=== PATIENT | female | born 1960 | race Caucasian/White ===

== ENCOUNTER 2023-11-14 14:15 | Emergency (ER) | payer BC, SELFPAY ==
[2023-11-14] VITALS (8 sets, daily range): BP systolic 62–115; BP diastolic 46–66; BMI 28.7
[2023-11-14 14:29] LABS: % Basophils 0.8 % (0-2); % Eosinophils 1.5 % (0-6); % Immature Granulocytes 0.2 % (0-0.5); % Lymphocytes 23.6 % (20.5-51.1); % Monocytes 6.9 % (1.7-9.3); Absolute Basophils 0.1 10^3/uL (0-0.2); Absolute Eosinophils 0.1 10^3/uL (0-0.7); Absolute Monocytes 0.6 10^3/uL (0.1-0.6); Absolute Neutrophils 5.8 10^3/uL (1.4-6.5); Hematocrit 35.7 % (37.0-47.0); Hemoglobin 12.7 g/dL (12.0-16.0); Mean Corp Hgb Conc. 35.6 g/dL (33.0-37.0); Mean Corpuscular Hgb 29.5 pg (27.0-31.0); Mean Corpuscular Volume 82.8 fL (81.0-99.0); Mean Platelet Volume 9.7 fL (7.4-10.4); Nucleated Red Blood Cells % 0 %; Platelet Count 286 10^3/uL (130-400); Red Blood Cell Count 4.31 10^6/uL (4.20-5.40); Red Cell Dist. Width 12.7 % (11.5-14.5); White Blood Cell Count 8.6 10^3/uL (4.8-10.8)
[2023-11-14 14:42] LABS: ALT (SGPT) 24 U/L (0-35); AST (SGOT) 25 U/L (14-36); Albumin 4.2 g/dl (3.5-5.0); Alkaline Phosphatase 78 U/L (38-126); Blood Urea Nitrogen 12 mg/dl (7-17); Calcium 9.6 mg/dl (8.4-10.2); Carbon Dioxide 28 mmol/L (22-30); Chloride 100 mmol/L (98-107); Estimated Creatinine Clearance 95 ml/min; Glucose 180 mg/dl (70-99); Potassium 3.2 mmol/L (3.5-5.1); Sodium 135 mmol/L (135-145); Total Bilirubin 0.7 mg/dl (0.2-1.3); Total Protein 7.1 g/dl (6.3-8.2); eGFR > 60.00
[2023-11-14 14:53] LABS: Troponin I < 0.012 ng/ml
--- NOTE | 2023-11-14 15:25 | ED.GENMED ---
History of Present Illness
General
Chief Complaint: Fainting/Passed Out
Source: patient
Exam Limitations: none
Time Seen by Provider: 11/14/23 14:50
Nursing documentation reviewed up to this point in time: agreed with
Travel History
Have you had any contact with someone who has COVID-19?: No
Do you have any symptoms of coronavirus? Fever > 100 degrees, chills, cough, shortness of breath, sore throat, loss of taste or smell, muscle aches, or headache?: No
History of Present Illness
History of Present Illness:
63 yr old female with history of hypertension high cholesterol visiting from [place] was having lunch with her sisters sitting when she suddenly felt like she was in a pass out. She never fully syncopized but sisters reports she is not answering
all the questions. EMS was called to scene. Patient reports that she is on 2 blood pressure medications amlodipine and night and losartan in the afternoon. She took losartan much earlier than she normally would because she was going out to lunch
today and if she was can have a late lunch. She only had some small berries this morning to eat a little tea. She had eaten prior to near syncope. She had no associated chest pain shortness of breath. On arrival patient has a low blood pressure
on my exam 91/55 with a heart rate 75 but she is feeling much better.
Review of Systems
Review of Systems
Allergies reviewed?: Yes
Other source history: family
All Other Systems: ROS reviewed and negative except as documented in HPI and ROS
Constitutional: Reports no symptoms
EENT: Reports no symptoms
Respiratory: Reports no symptoms
Cardiac: Reports syncope (Near syncope)
ABD/GI: Reports no symptoms; Denies abdominal pain, nausea or vomiting
: Reports no symptoms
Musculoskeletal: Reports no symptoms
Skin: Reports no symptoms
Neurological: Reports no symptoms
Psychiatric: Reports no symptoms
Phy Exam
General Physical Exam
General Presentation: no apparent distress
General age: appears stated age
General Skin: warm and dry
General Habitus: normal
General Mental: alert
General Hydration: appears well hydrated
Cardiovascular Exam
Cardiovascular Exam: regular rate/rhythm, no murmur and normal peripheral pulses
Pulmonary Exam
Pulmonary Exam: lungs clear and no respiratory distress
Neurological Exam
Neurological Exam: alert and oriented x3
Musculoskeletal Exam
Musculoskeletal Exam: full ROM and other (very minimal right lateral ankle swelling which is chronic worse w/ standing )
Skin Exam
Skin Exam: normal color and warm/dry
Psychiatric Exam
Psychiatric Exam: normal mood/affect
Course
Orders/Labs/Results
Orders:
Orders
11/14/23 14:18
EKG [Electrocardiogram (*1)] Urgent
Reason for Study: Syncope
EKG- Treatment ONCE
11/14/23 14:19
Complete Blood Count/With Diff Urgent
Comprehensive Metabolic Panel Urgent
Troponin I Urgent
11/14/23 15:31
0.9% Sodium Chloride 1000 ml [Nss] 1,000 ml IV BOLUS
11/14/23 15:35
Potassium Chloride [KCl] 40 meq PO NOW STA
Abnormal Lab Results
11/14/23
14:19
Hct 35.7 L %
(37.0-47.0)
Potassium 3.2 L mmol/L
(3.5-5.1)
Glucose 180 H mg/dl
(70-99)
11/14/23 14:19
11/14/23 14:19
Vital Signs
Initial and Last Documented VS:
Initial Vital Signs
Temp Pulse Resp BP Pulse Ox
98.8 F 85 16 115/66 97
11/14/23 14:20 11/14/23 14:20 11/14/23 14:20 11/14/23 14:20 11/14/23 14:20
Last Documented Vital Signs
Temp Pulse Resp BP Pulse Ox
98.8 F 81 19 98/63 95
11/14/23 14:20 11/14/23 16:15 11/14/23 16:15 11/14/23 16:00 11/14/23 16:15
Heel Curver consulted with Physician
Heel Curver consulted with physician?: Yes
Name of Physician Consulted: Jean-Pierre
MDM/Problems Addressed
Differential Diagnosis Includes:
Not limited to near syncope hypertension
MDM/Problems Addressed:
63-year-old female was brought by EMS for near syncopal episode. Patient as document was sitting having lunch with her sisters when she felt like she was in a pass out but never truly had syncope. Blood pressure has been low. She is visiting from
[place] was planning on a late lunch and therefore took her blood pressure medication, losartan earlier than she normally does. This low blood pressures like what contributed to patient's near syncope. She had no associated chest pain shortness of
breath she is no cardiac history. She presents awake alert no acute distress feeling much better. Blood pressure still low patient was given fluid bolus by EMS will give additional fluids here and plan for discharge home in addition patient has
known chronic right lateral small ankle swelling which occurs worse when she stands at work. She has been worked up by her family doctor for this. There is no swelling of calf or foot nontender. She had a negative' clotting test at her doctor's
office.' Sounds like some venous insufficiency not concerning for DVT. Patient is nontachycardic nonhypoxic no shortness.
1535:Will hydrate here and plan for discharge home. Patient's potassium was 3.2. She now adds that her losartan has HCTZ and it and she has had low potassium in the past we will give 1 dose of oral potassium and have patient follow-up with a
family doctor. She is going back to [place] Wednesday tomorrow.
1700:
Patient's blood pressure 112/57 heart remains in the 80s. She is feeling better. She received fluids has been drinking more fluids and feel safe to go home. Patient will hold off on blood pressure medication tonight and likely tomorrow morning as
she is flying back to [place] and will follow-up with her family doctor as an outpatient
Chronic conditions affecting care:
Hypertension on Losartan/amlodipine took losartan earlier then nml
*Critical Care Note
Total Time (30-74mins, 75-104mins- exclusive of procedures): Not Applicable
ED Attending Note
-
Portions of this chart may have been created with voice recognition software.� Occasional wrong word or��sound alike� substitutions may have occurred due to the inherent limitations of voice recognition software.
Discharge Plan
Departure
Patient Disposition: Home (Routine Discharge)
Date of Disposition: 11/14/23
Time of Disposition: 17:01
Patient with high blood pressure during this ER visit?: No
Covid-19: Not Applicable
Discharge Problem:
Near syncope
Instructions: Near Fainting (DC)
Referrals:
Nikkie Jacques MD [Family Provider] -
Activity Restrictions/Additional Instructions:
Stay well-hydrated.
You may hold off any blood pressure medication today call your doctor tomorrow morning. Also please follow-up with your family doctor in the next several days for reevaluation of your low potassium. In the meantime increase rich potassium
including bananas potatoes green leafy vegetables orange juice.
Return or go to the nearest ER if any worsening of symptoms.
Interventions
Interventions:
*Risk Screen - Suicide Last Done: 11/14/23 14:20
*General Assessment Last Done: 11/14/23 14:20
*Neglect/Abuse Screening Last Done: 11/14/23 14:20
ED- Fall Risk Assessment Last Done: 11/14/23 14:29
*ED COVID-19 Vaccine History Last Done: 11/14/23 14:20
ED- Cardiac Assessment Last Done: 11/14/23 14:29
ED- Neurological Assessment Last Done: 11/14/23 14:29
Discharge Date and Time
Print Language: MALAWIAN
[2023-11-14] MEDS: NSS 1000 IV (15:51)
[2023-11-14] MEDS: KCL 40 MEQ PO (15:51)
== END 2023-11-14 17:24 | disposition home or self-care (01) ==
LOC: EMR 14:15
PROVIDERS: EMERGENCY PHYSICIAN Emergency Medicine; FAMILY PHYSICIAN Family Medicine
DX: R55 Syncope and collapse (principal); M25.471 Effusion, right ankle; I10 Essential (primary) hypertension; E78.00 Pure hypercholesterolemia, unspecified; F41.9 Anxiety disorder, unspecified; F32.A Depression, unspecified
CPT/HCPCS: 99284; 96360; 80053; 84484; 85025; 93005